=== PATIENT | male | born 1980 | race Caucasian/White ===

== ENCOUNTER → 2018-08-28 | Outpatient (CLI) | payer BC ==
[~2018-08-28] MED LIST: TRAM-21 PO
[2018-08-28 16:15] LABS: BASOPHILS % (AUTO) 1 % (0-10); EOSINOPHILS # (AUTO) 0.1 10^3/uL (0.0-0.3); EOSINOPHILS % (AUTO) 2 % (0-10); HEMATOCRIT 41 % (40-54); LYMPHOCYTES # (AUTO) 1.5 X 10^3 (1.0-4.0); LYMPHOCYTES % (AUTO) 37 % (12-44); MEAN CORPUSCULAR HEMOGLOBIN 30 PG (25-34); MEAN CORPUSCULAR HGB CONC 34 G/DL (32-36); MEAN CORPUSCULAR VOLUME 87 FL (80-99); MEAN PLATELET VOLUME 8.8 FL (7.4-10.4); MONOCYTES # (AUTO) 0.3 X 10^3 (0.0-1.0); MONOCYTES % (AUTO) 7 % (0-12); NEUTROPHILS # (AUTO) 2.2 X 10^3 (1.8-7.8); NEUTROPHILS % (AUTO) 53 % (42-75); PLATELET COUNT 227 10^3/uL (130-400); RED BLOOD COUNT 4.74 10^6/uL (4.35-5.85); RED CELL DISTRIBUTION WIDTH 13.1 % (10.0-14.5); WHITE BLOOD COUNT 4.1 10^3/uL (4.3-11.0)
[2018-08-28 16:29] LABS: BAND NEUTROPHILS 0 %; BASOPHILS % (MANUAL) 0 %; EOSINOPHILS % (MANUAL) 4 %; LYMPHOCYTES % (MANUAL) 37 %; MONOCYTES % (MANUAL) 7 %; NEUTROPHILS % (MANUAL) 52 %
[2018-08-28 16:30] LABS: RBC MORPH NORMAL
[2018-08-28 16:36] LABS: ERYTHROCYTE SEDIMENTATION RATE 2 MM/HR (0-15)
== END ==
LOC: LAB 15:55
PROVIDERS: ATTEND Family Medicine
DX: D70.4 Cyclic neutropenia (principal)
CPT/HCPCS: 36415; 83615; 85007; 85027; 85652; 86141; 86618; 86666; 86668; 86757

== ENCOUNTER → 2018-10-08 | Outpatient (CLI) | payer BC | END | disposition home or self-care (01) | LOC: PREOP 05:51 | PROVIDERS: ATTEND Surgery | DX: Z01.818 Encounter for other preprocedural examination (principal) ==

== ENCOUNTER 2018-10-16 09:59 | Outpatient (RCR) | payer BC ==
[2018-09-17 13:18] LABS: BASOPHILS % (AUTO) 1 % (0-10); EOSINOPHILS # (AUTO) 0.1 10^3/uL (0.0-0.3); EOSINOPHILS % (AUTO) 3 % (0-10); HEMATOCRIT 41 % (40-54); HEMOGLOBIN 14.2 G/DL (13.3-17.7); LYMPHOCYTES # (AUTO) 1.6 X 10^3 (1.0-4.0); LYMPHOCYTES % (AUTO) 43 % (12-44); MEAN CORPUSCULAR HEMOGLOBIN 30 PG (25-34); MEAN CORPUSCULAR HGB CONC 35 G/DL (32-36); MEAN CORPUSCULAR VOLUME 85 FL (80-99); MEAN PLATELET VOLUME 8.8 FL (7.4-10.4); MONOCYTES # (AUTO) 0.3 X 10^3 (0.0-1.0); MONOCYTES % (AUTO) 9 % (0-12); NEUTROPHILS # (AUTO) 1.6 X 10^3 (1.8-7.8); NEUTROPHILS % (AUTO) 44 % (42-75); PLATELET COUNT 227 10^3/uL (130-400); RED CELL DISTRIBUTION WIDTH 12.9 % (10.0-14.5); WHITE BLOOD COUNT 3.6 10^3/uL (4.3-11.0)
[2018-09-17 13:35] LABS: ALANINE AMINOTRANSFERASE 19 U/L (0-55); ALKALINE PHOSPHATASE 73 U/L (40-136); BILIRUBIN,TOTAL 1.1 MG/DL (0.1-1.0); BUN/CREATININE RATIO 10; CARBON DIOXIDE 25 MMOL/L (21-32); CHLORIDE 105 MMOL/L (98-107); CREATININE SERUM 0.93 MG/DL (0.60-1.30); GFR ESTIMATED > 60; GLUCOSE 89 MG/DL (70-105); SODIUM 138 MMOL/L (135-145); TOTAL PROTEIN 7.7 GM/DL (6.4-8.2)
[2018-09-17 14:41] LABS: ABSOLUTE RETIC # 28 10e9/L (24-90); RETICULOCYTE % 0.59 % (0.50-2.40)
[2018-09-17 14:52] LABS: BAND NEUTROPHILS 1 %; LYMPHOCYTES % (MANUAL) 44 %; NEUTROPHILS % (MANUAL) 36 %
[2018-09-17 14:53] LABS: BASOPHILS % (MANUAL) 1 %; EOSINOPHILS % (MANUAL) 2 %; MONOCYTES % (MANUAL) 16 %; RBC MORPH NORMAL
[2018-09-18 07:25] LABS: HEPATITIS C ANTIBODY C Non-Reactive (Non-Reactive)
[2018-10-16 10:10] LABS: BASOPHILS % (AUTO) 1 % (0-10); EOSINOPHILS # (AUTO) 0.2 10^3/uL (0.0-0.3); EOSINOPHILS % (AUTO) 5 % (0-10); HEMATOCRIT 40 % (40-54); LYMPHOCYTES # (AUTO) 1.3 X 10^3 (1.0-4.0); LYMPHOCYTES % (AUTO) 40 % (12-44); MEAN CORPUSCULAR HEMOGLOBIN 30 PG (25-34); MEAN CORPUSCULAR HGB CONC 35 G/DL (32-36); MEAN CORPUSCULAR VOLUME 85 FL (80-99); MEAN PLATELET VOLUME 8.9 FL (7.4-10.4); MONOCYTES # (AUTO) 0.3 X 10^3 (0.0-1.0); MONOCYTES % (AUTO) 11 % (0-12); NEUTROPHILS # (AUTO) 1.4 X 10^3 (1.8-7.8); NEUTROPHILS % (AUTO) 44 % (42-75); PLATELET COUNT 206 10^3/uL (130-400); RED CELL DISTRIBUTION WIDTH 12.7 % (10.0-14.5); WHITE BLOOD COUNT 3.2 10^3/uL (4.3-11.0)
== END 2018-12-16 | disposition home or self-care (01) ==
LOC: ONC 09:59
PROVIDERS: ATTEND Internal Medicine Hematology & Oncology
DX: D72.819 Decreased white blood cell count, unspecified (principal); D70.9 Neutropenia, unspecified; R10.13 Epigastric pain; R68.81 Early satiety; Z83.79 Family history of other diseases of the digestive system
CPT/HCPCS: 36415; 80053; 80074; 82525; 82607; 82746; 83615; 85007; 85025; 85027; 85045; 85652; 86038; 86141; 86703; 99213; 99214

== ENCOUNTER → 2018-11-29 | Day surgery (SDC) | payer BC ==
[~2018-11-29] VITALS: Ht 182.9 cm; Wt 70.3 kg
--- OUTSIDE RECORDS SUMMARY | 2018-11-29 11:39 | XMS REPORT | CCD ---
Author Author DAKOTA ARIZA Organization Unknown Address [address] [facility] [address] [place] [address] Care Team Providers Care Signalling And Communications Engineer Name Role Phone IWN BENAVIDES, VITO Tatum Attphymedina VITO WALDEN MD Allergies Unknown or Not Available. Active Medications Unknown or Not Available. Problems Unknown or Not Available. Procedures Unknown or Not Available. Results Unknown or Not Available. Encounters Encounter Diagnosis Diagnosis Code Start Date Open bite of right forearm, initial encounter [id number] 09/19/2016 Function Status Unknown or Not Available. History of Immunizations Unknown or Not Available. Social History Smoking Status Code Start Date End Date Never smoker [id number] Vital Signs Unknown or Not Available. Function Status Unknown or Not Available. Goals Unknown or Not Available. ASSESSMENTS Unknown or Not Available. Health Concerns Section Unknown or Not Available.
--- OUTSIDE RECORDS SUMMARY | 2018-11-29 11:39 | XMS REPORT ---
Discharge Summary 2.1 Created on: KEMAR BEJARANO : 1980 Sex: Male Author Author STEPHEN PATTERSON Organization Unknown Address [address] [place], [place] [id number] Care Team Providers Care Weather Anchor Name Role Phone [facility] [employer] Attending NITESH Samson MD [facility] Functional Status No Data Found Immunization No Data Found Mental Status No Data Found Results FINGER 1-10 MIN 2V - Completed: 10/10/2017 14:47 LOINC: EXAMINATION:Right 5thFINGER 1-10 MIN 2VREASON FOR EXAM:Right 5th finger mobility Changes;Pain;Swelling;Trauma COMPARISON:None.FINDINGS:No acute fracture , dislocation, or bone destruction.The bone mineralization is unremarkable.IMPRESSION:No acute osseous findings.Reviewed and Electronically Signed by: Misbah Tapia Date/Time: 10/10/2017 2:48 PMJob ID#: [id number] Social History Type Status Start Date End Date Code Code System Smoking History Never smoker (Never Smoked) [id number] SNOMED-CT Vital Signs No Data Found Assessment No Data Found Hospital Discharge Instructions Should you have any questions prior to discharge, please contact a member of your healthcare team. If you have left the hospital and have any questions, please contact your primary care physician. Reason For Referral No Data Found Hospital Course You were admitted to [facility] on 10/10/2017 14:07 with a principal diagnosis of Contusion of right little finger without damage to nail, initial encounter You were discharged from [facility] on 10/10/2017 14:56 Medications No Data Found Procedures No Data Found Implants No Data Found Problems No Data Found Allergies No Data Found Plan of Treatment No Data Found Encounters No Data Found Goals No Data Found Discharge Medications No Data Found Discharge Diagnosis Discharge Diagnosis Diagnosis Code Start Date Contusion of right little finger without damage to nail, initial encounter [id number] 10/10/2017 Health Concerns Section No Data Found
--- OUTSIDE RECORDS SUMMARY | 2018-11-29 11:39 | XMS REPORT ---
Discharge Summary 2.1 Created on: KEMAR BEJARANO : 1980 Sex: Male Author Author STEPHEN PATTERSON Organization Unknown Address [address] [place], [place] [id number] Care Team Providers Care Textile Cutting Machine Operator Name Role Phone CHARAN MORE BARBARA PHYS [...] Misbah Tapia Date/Time: 10/10/2017 2:48 PMJob ID#: [id number] Social History Type Status Start Date End Date Code Code System Smoking History Never smoker (Never Smoked) [id number] SNOMED-CT Vital Signs No Data Found Assessment No Data Found Hospital Discharge Instructions Should you have any questions prior to discharge, please contact a member of your healthcare team. If you have left the hospital and have any questions, please contact your primary care physician. Reason For Referral No Data Found Hospital Course You were admitted to [facility] on 10/10/2017 14:07 with a principal diagnosis of Contusion of right little finger without damage to nail, initial encounter You were discharged from [facility] on 10/10/2017 14:56 Medications No Data Found Procedures No Data Found Implants No Data Found Problems No Data Found Allergies No Data Found Plan of Treatment No Data Found Encounters No Data Found Goals No Data Found Discharge Medications No Data Found Discharge Diagnosis Discharge Diagnosis Diagnosis Code Start Date Contusion of right little finger without damage to nail, initial encounter [id number] 10/10/2017 Health Concerns Section No Data Found
[2018-11-29 12:40] VITALS: BP 122/68
--- NOTE | 2018-11-29 12:45 | Anesthesia-Procedure Note ---
Procedures/Interventions Procedure Start/Stop/Diagnosis Date of Procedure: Nov 29, 2018 Start Time: 12:15 Referring Physician: Samy Preprocedural Diagnosis: left upper&lower extremity weakness/numbness; blurred vision; evaluate MS Stop Time: 12:35 Lumbar Puncture Discussed Risk,Benefits: Yes Patient Consents: Yes (consent signed by patient and provider) Position: Lying (left lateral decub) Sterile Technique: Yes Opening Pressure: 20 Fluid Color: clear Spinal Needle Used: Other (25G Pencan 3 1/2 inch) Procedure Notes Prepped with betadine swab x 3. Sterile technique throughout. X1 attempt at L4. +CSF. Opening pressures noted. Specimen collected 2ml x 4 vials. Delivered to lab by MARIANA Brantley. Pt tolerated well. Site benign, band aid applied. Other Comment: ASA 2 GINA GARCIAS CRNA Nov 29, 2018 12:45
[2018-11-29 13:00] VITALS: BP 119/65
[2018-11-29 13:13] VITALS: BP 121/71
[2018-11-29 14:24] LABS: CSF GLUCOSE 53 MG/DL (50-80); CSF TOTAL PROTEIN 26 MG/DL (15-40)
[2018-11-29 15:25] LABS: APPEARANCE,CSF CLEAR; COLOR,CSF COLORLESS; RED BLOOD CELL,CSF 2 CELLS (0-0); WHITE BLOOD CELL,CSF 0 CELLS (0-5)
[2018-11-29 15:26] LABS: CSF TUBE NUMBER 3
== END | disposition home or self-care (01) ==
LOC: SDC 11:36
PROVIDERS: ATTEND Psychiatry & Neurology Neurology
DX: R29.898 Other symptoms and signs involving the musculoskeletal system (principal); R20.0 Anesthesia of skin; H53.8 Other visual disturbances
CPT/HCPCS: 36415; 82784; 82945; 83916; 84157; 87070; 87205; 87210; 89051

== ENCOUNTER 2019-03-14 15:03 | Outpatient (RCR) | payer BC ==
[2019-02-28 10:36] LABS: ABSOLUTE RETIC # 49 10e9/L (24-90); BASOPHILS % (AUTO) 0 % (0-10); EOSINOPHILS % (AUTO) 1 % (0-10); HEMATOCRIT 43 % (40-54); HEMOGLOBIN 14.4 G/DL (13.3-17.7); LYMPHOCYTES # (AUTO) 1.7 X 10^3 (1.0-4.0); LYMPHOCYTES % (AUTO) 23 % (12-44); MEAN CORPUSCULAR HEMOGLOBIN 30 PG (25-34); MEAN CORPUSCULAR HGB CONC 34 G/DL (32-36); MEAN CORPUSCULAR VOLUME 88 FL (80-99); MONOCYTES # (AUTO) 0.5 X 10^3 (0.0-1.0); MONOCYTES % (AUTO) 7 % (0-12); NEUTROPHILS # (AUTO) 4.9 X 10^3 (1.8-7.8); NEUTROPHILS % (AUTO) 69 % (42-75); PLATELET COUNT 282 10^3/uL (130-400); RED CELL DISTRIBUTION WIDTH 14.4 % (10.0-14.5); WHITE BLOOD COUNT 7.1 10^3/uL (4.3-11.0)
[2019-02-28 12:39] LABS: BAND NEUTROPHILS 1 %; BASOPHILS % (MANUAL) 0 %; EOSINOPHILS % (MANUAL) 0 %; LYMPHOCYTES % (MANUAL) 24 %; MONOCYTES % (MANUAL) 5 %; NEUTROPHILS % (MANUAL) 70 %; RBC MORPH NORMAL
[~2019-03-14 15:03] MED LIST changes: +LIDOCAINE 1% 20 ML (XYLOCAINE) VIAL CANCER CTR ONE
== END 2019-05-29 | disposition home or self-care (01) ==
LOC: ONC 15:03
PROVIDERS: ATTEND Internal Medicine Hematology & Oncology
DX: D70.9 Neutropenia, unspecified (principal); G81.94 Hemiplegia, unspecified affecting left nondominant side; R63.4 Abnormal weight loss
CPT/HCPCS: 38222; 85007; 85027; 85045; 88184; 88305; 88311; 88313; 99213

== ENCOUNTER → 2023-06-13 | Outpatient (CLI) | payer BC ==
[~2023-06-13] MED LIST changes: -LIDOCAINE 1% 20 ML (XYLOCAINE) VIAL CANCER CTR ONE
[2023-06-13 11:20] LABS: BASOPHILS % (AUTO) 1 % (0-10); EOSINOPHILS # (AUTO) 0.1 10^3/uL (0.0-0.3); EOSINOPHILS % (AUTO) 3 % (0-10); HEMATOCRIT 44 % (40-54); HEMOGLOBIN 15.1 g/dL (13.3-17.7); LYMPHOCYTES # (AUTO) 1.2 10^3/uL (1.0-4.0); LYMPHOCYTES % (AUTO) 31 % (12-44); MEAN CORPUSCULAR HEMOGLOBIN 30 pg (25-34); MEAN CORPUSCULAR HGB CONC 34 g/dL (32-36); MEAN CORPUSCULAR VOLUME 89 fL (80-99); MEAN PLATELET VOLUME 8.8 fL (9.0-12.2); MONOCYTES # (AUTO) 0.4 10^3/uL (0.0-1.0); MONOCYTES % (AUTO) 10 % (0-12); NEUTROPHILS # (AUTO) 2.1 10^3/uL (1.8-7.8); NEUTROPHILS % (AUTO) 55 % (42-75); PLATELET COUNT 195 10^3/uL (130-400); WHITE BLOOD COUNT 3.8 10^3/uL (4.3-11.0)
[2023-06-13 11:42] LABS: ALANINE AMINOTRANSFERASE 28 U/L (0-55); ALBUMIN 4.9 GM/DL (3.2-4.5); ALKALINE PHOSPHATASE 76 U/L (40-136); BILIRUBIN,TOTAL 1.1 MG/DL (0.1-1.0); BUN/CREATININE RATIO 11; CALCIUM 10.2 MG/DL (8.5-10.1); CARBON DIOXIDE 28 MMOL/L (21-32); CHLORIDE 106 MMOL/L (98-107); CHOLESTEROL 166 MG/DL (< 200); CREATININE SERUM 1.07 MG/DL (0.60-1.30); GFR ESTIMATED 89; GLUCOSE 100 MG/DL (70-105); HDL CHOLESTEROL 75 MG/DL (40-60); SODIUM 140 MMOL/L (135-145); TOTAL PROTEIN 7.5 GM/DL (6.4-8.2); TRIGLYCERIDES 41 MG/DL (<150); VLDL CHOLESTEROL 8 MG/DL (5-40)
== END ==
LOC: CARD 10:23
PROVIDERS: ATTEND Nurse Practitioner Family
DX: E78.5 Hyperlipidemia, unspecified (principal); R73.9 Hyperglycemia, unspecified; R07.9 Chest pain, unspecified
CPT/HCPCS: 36415; 80053; 80061; 83036; 84443; 84484; 85025; 93005